=== PATIENT | male | born 1990 | race Two or more races ===

== ENCOUNTER 2021-10-06 08:17 | Day surgery (SDC) | payer OTHER, SELFPAY ==
[~2021-10-06] VITALS: Ht 182.9 cm; Wt 108.9 kg
[2021-10-06] MEDS ORDERED: fentaNYL citrate 0.05 MG/ML VIAL ONE (09:25)
[2021-10-06] MEDS ORDERED: diphenhydrAMINE 50 MG/ML VIAL ONE (09:25)
[2021-10-06] MEDS ORDERED: MIDAZOLAM 2 MG/2 ML VIAL ONE (09:26)
[2021-10-06] MEDS ORDERED: LIDOCAINE 2% 100 MG/5 ML UJET TP ONE (09:26)
[2021-10-06] MEDS ORDERED: MIDAZOLAM 2 MG/2 ML VIAL IVP ONE (10:40)
[2021-10-06] MEDS ORDERED: diphenhydrAMINE 50 MG/ML VIAL IVP ONE (10:40)
[2021-10-06] MEDS ORDERED: fentaNYL citrate 0.05 MG/ML VIAL IVP ONE (10:40)
== END 2021-10-06 10:53 | disposition home or self-care (01) ==
LOC: MDS 08:17 → MMU 08:18 → MDS 10:53
PROVIDERS: ATTEND Internal Medicine Gastroenterology
DX: Z12.11 Encounter for screening for malignant neoplasm of colon (principal); K50.90 Crohn's disease, unspecified, without complications; K63.3 Ulcer of intestine; F17.210 Nicotine dependence, cigarettes, uncomplicated; Z92.25 Personal history of immunosuppression therapy; Z79.899 Other long term (current) drug therapy; Z20.822 Contact with and (suspected) exposure to COVID-19
CPT/HCPCS: 45380; 87426; J1200; J2250; J3010

== ENCOUNTER 2024-02-02 10:45 | Emergency (ER) | payer OTHER ==
[~2024-02-02] VITALS: Ht 182.9 cm; Wt 106.6 kg
[2024-02-02 10:56] VITALS: BP 141/88; PULSE 118; RESP 18; TEMP 97.9; O2SAT 97
[2024-02-02] MEDS: NACL 0.9% 1,000 ML IV ONE (11:38)
[2024-02-02 11:40] LABS: BASOPHILS # (AUTO) 0.1 K/uL (0.00-0.22); BASOPHILS % (AUTO) 0.9 % (0.0-2.0); EOSINOPHILS # (AUTO) 0.2 K/uL (0-0.4); EOSINOPHILS % (AUTO) 1.5 % (0.0-4.0); HEMATOCRIT 31.2 % (36-52); HEMOGLOBIN 9.8 g/dL (12.0-18.0); LYMPHOCYTES # (AUTO) 1.1 K/uL (2.0-11.5); LYMPHOCYTES % (AUTO) 7.1 % (20.5-51.1); MEAN CORPUSCULAR HEMOGLOBIN 22 pg (27-31); MEAN CORPUSCULAR HGB CONC 32 g/dL (33-37); MEAN CORPUSCULAR VOLUME 70.5 fL (80-94); MONOCYTES # (AUTO) 1.2 K/uL (0.8-1.0); MONOCYTES % (AUTO) 8.4 % (1.7-9.3); NEUTROPHILS # (AUTO) 12.2 K/uL (1.8-7.7); NEUTROPHILS % (AUTO) 82.1 % (42.2-75.2); PLATELET COUNT (AUTO) 446 K/uL (140-450); RED BLOOD CELL COUNT(AUTO) 4.42 MIL/uL (4.20-6.10); RED CELL DISTRIBUTION WIDTH 18.1 % (11.6-13.7); WHITE BLOOD COUNT (AUTO) 14.9 K/uL (4.8-10.8)
[2024-02-02 11:46] LABS: APPEARANCE,URINE CLEAR (CLEAR); BILIRUBIN,URINE NEGATIVE (NEGATIVE); BLOOD, URINE NEGATIVE (NEGATIVE); COLOR,URINE YELLOW (YELLOW); LEUKOCYTE ESTERASE ,URINE TRACE (NEGATIVE); NITRITE, URINE NEGATIVE (NEGATIVE); PROTEIN,URINE NEGATIVE (NEGATIVE); UGLUCOSE NEGATIVE (NEGATIVE); UROBILINOGEN,URINE 0.2 EU/dL (0.2 - 1)
[2024-02-02] MEDS: LEVOFLOXACIN 500 MG/D5W PREMIX 100 ML IV ONE (12:01)
[2024-02-02 12:02] LABS: ALANINE AMINOTRANSFERASE 34 U/L (12-78); ALBUMIN 2.5 g/dL (3.4-5.0); ALKALINE PHOSPHATASE 99 U/L (50-136); ASPARTATE AMINOTRANSFERASE 15 U/L (15-37); BILIRUBIN,DIRECT 0.1 mg/dL (0.0-0.3); LIPASE 65 U/L (16-77); TOTAL BILIRUBIN 0.5 mg/dL (0.0-1.0); TOTAL PROTEIN, SERUM 7.1 g/dL (6.4-8.2)
[2024-02-02 12:04] LABS: LACTIC ACID 1.2 mmol/L (0.4-2.0)
[2024-02-02 12:28] LABS: ANION GAP 11.3 (8-16); CALCIUM 8.6 mg/dL (8.5-10.1); CARBON DIOXIDE 29.1 mmol/L (21-32); CREATININE 1.1 mg/dL (0.6-1.3); POTASSIUM 3.4 mmol/L (3.5-5.1)
[2024-02-02 12:53] LABS: BACTERIA,URINE 0-2 /HPF (None Seen); RBC,URINE 0 /HPF (0-5); SQUAMOUS EPITHELIAL CELL,UR 0-3 (FEW) /LPF (0-3 (FEW)); WBC,URINE 0-5 /HPF (0-5)
[2024-02-02] MEDS: NACL 0.9% 1,000 ML IV SCH (13:03)
[2024-02-02] MEDS: MORPHINE SULFATE 4 MG/ML SYR IVP ONE (13:15)
[2024-02-02] MEDS ORDERED: BACL10TA4 PO (13:21)
[2024-02-02] MEDS ORDERED: ONDA8TAB87 PO (13:21)
[2024-02-02] MEDS ORDERED: TRAM-748 PO (13:23)
[2024-02-02 13:58] VITALS: BP 134/71; PULSE 86; RESP 18; TEMP 98.2; O2SAT 96
== END 2024-02-02 13:58 | disposition home or self-care (01) ==
LOC: MED 10:45
DX: M62.830 Muscle spasm of back (principal); R50.9 Fever, unspecified; R19.7 Diarrhea, unspecified; F17.200 Nicotine dependence, unspecified, uncomplicated; Z79.899 Other long term (current) drug therapy; Z88.0 Allergy status to penicillin; Z88.1 Allergy status to other antibiotic agents
CPT/HCPCS: 36415; 71045; 80048; 80076; 81001; 83605; 83690; 83880; 84484; 85025; 87040; 87086; 96361; 96365; 96375; 99284; J1956; J2270; J7030

== ENCOUNTER 2024-05-26 14:31 | Emergency (ER) | payer OTHER ==
[~2024-05-26] VITALS: Ht 180.3 cm; Wt 103.9 kg
[~2024-05-26 14:31] MED LIST: BACL10TA4 PO; ONDA8TAB87 PO; TRAM-748 PO
[2024-05-26 14:43] VITALS: BP 124/85; PULSE 94; RESP 18; TEMP 98.1; O2SAT 98
[2024-05-26 16:39] LABS: BASOPHILS # (AUTO) 0.1 K/uL (0.00-0.22); BASOPHILS % (AUTO) 0.5 % (0.0-2.0); EOSINOPHILS # (AUTO) 0.2 K/uL (0-0.4); EOSINOPHILS % (AUTO) 1.6 % (0.0-4.0); HEMATOCRIT 35.7 % (36-52); HEMOGLOBIN 11.1 g/dL (12.0-18.0); LYMPHOCYTES # (AUTO) 1.2 K/uL (2.0-11.5); LYMPHOCYTES % (AUTO) 9.6 % (20.5-51.1); MEAN CORPUSCULAR HEMOGLOBIN 22 pg (27-31); MEAN CORPUSCULAR HGB CONC 31 g/dL (33-37); MEAN CORPUSCULAR VOLUME 70.8 fL (80-94); MONOCYTES # (AUTO) 1.2 K/uL (0.8-1.0); NEUTROPHILS # (AUTO) 9.5 K/uL (1.8-7.7); NEUTROPHILS % (AUTO) 78.3 % (42.2-75.2); PLATELET COUNT (AUTO) 372 K/uL (140-450); RED BLOOD CELL COUNT(AUTO) 5.04 MIL/uL (4.20-6.10); RED CELL DISTRIBUTION WIDTH 16.8 % (11.6-13.7); WHITE BLOOD COUNT (AUTO) 12.2 K/uL (4.8-10.8)
[2024-05-26 16:55] LABS: ANION GAP 10.2 (8-16); CALCIUM 8.8 mg/dL (8.5-10.1); CARBON DIOXIDE 28.2 mmol/L (21-32); CREATININE 0.8 mg/dL (0.6-1.3); POTASSIUM 3.4 mmol/L (3.5-5.1)
[2024-05-26 16:59] LABS: ALBUMIN 2.9 g/dL (3.4-5.0); BILIRUBIN,DIRECT 0.1 mg/dL (0.0-0.3); TOTAL BILIRUBIN 0.4 mg/dL (0.0-1.0); TOTAL PROTEIN, SERUM 7.2 g/dL (6.4-8.2)
[2024-05-26 17:24] LABS: APPEARANCE,URINE CLEAR (CLEAR); BILIRUBIN,URINE NEGATIVE (NEGATIVE); BLOOD, URINE NEGATIVE (NEGATIVE); COLOR,URINE YELLOW (YELLOW); LEUKOCYTE ESTERASE ,URINE NEGATIVE (NEGATIVE); NITRITE, URINE NEGATIVE (NEGATIVE); PROTEIN,URINE NEGATIVE (NEGATIVE); UGLUCOSE NEGATIVE (NEGATIVE); UROBILINOGEN,URINE 0.2 EU/dL (0.2 - 1)
[2024-05-26 18:05] VITALS: BP 110/78; PULSE 64; RESP 21; TEMP 98.1; O2SAT 99
== END 2024-05-26 18:04 | disposition home or self-care (01) ==
LOC: MED 14:31
DX: R10.9 Unspecified abdominal pain (principal); K62.89 Other specified diseases of anus and rectum; R11.2 Nausea with vomiting, unspecified; R19.7 Diarrhea, unspecified; R07.9 Chest pain, unspecified; R06.02 Shortness of breath; F17.200 Nicotine dependence, unspecified, uncomplicated; Z98.890 Other specified postprocedural states; Z79.899 Other long term (current) drug therapy; Z88.0 Allergy status to penicillin; Z88.1 Allergy status to other antibiotic agents
CPT/HCPCS: 36415; 74178; 80048; 80076; 81003; 83690; 85025; 99285; Q9967